=== PATIENT | male | born 1980 | race Caucasian/White ===

== ENCOUNTER 2017-07-05 07:36 | Emergency (ER) | payer OTHER ==
[~2017-07-05] VITALS: Ht 175.3 cm; Wt 70.3 kg
--- NOTE | 2017-07-05 07:55 | NUR ---
PRESENTS TO ER C/O PIMPLE LIKE/REDNESS TO RIGHT SIDE OF NECK X2 DAYS, "I TRIED A LANCET TO DRAIN THE ABSCESS YESTERDAY", NOW MORE SWOLLEN AND PAINFUL. A/OX 4. BREATHING EVEN AND UNLABORED. NO SOB. VITALS STABLE. SAFETY AND COMFORT MEASURES IN PLACE. AWAITING MD ORDERS.
--- NOTE | 2017-07-05 08:23 | NUR ---
Patient discharged to home in stable condition. Written and verbal after care instructions given. Patient verbalizes understanding of instruction.
[2017-07-05 08:33] VITALS: BP 124/62
== END 2017-07-05 08:49 | disposition home or self-care (01) ==
LOC: ER 07:38
DX: L03.221 Cellulitis of neck (principal); F17.200 Nicotine dependence, unspecified, uncomplicated; Z88.0 Allergy status to penicillin; Z88.1 Allergy status to other antibiotic agents
CPT/HCPCS: A4606; Z7610